=== PATIENT | male | born 1955 | race Caucasian/White ===

== ENCOUNTER → 2018-04-24 | Outpatient (CLI) | payer OTHER | END | disposition home or self-care (01) | LOC: RX STUDY 04-18 09:15 | DX: R13.19 Other dysphagia (principal) ==

== ENCOUNTER 2018-09-02 09:14 | Outpatient (CLI) | payer OTHER | END 2018-09-02 09:19 | disposition home or self-care (01) | LOC: NUCLEAR 09:14 | DX: I67.89 Other cerebrovascular disease (principal); G20 Parkinson's disease ==

== ENCOUNTER 2018-09-02 10:07 | Outpatient (CLI) | payer OTHER | END 2018-09-02 17:00 | disposition home or self-care (01) | LOC: MRI 10:07 | DX: G20 Parkinson's disease (principal) | CPT/HCPCS: 70553 ==

== ENCOUNTER 2025-03-04 14:22 | Emergency (ER) | payer OTHER ==
[~2025-03-04] VITALS: Ht 170.2 cm; Wt 47.6 kg
[2025-03-04] MEDS ORDERED: DEPAKOTE ER500 MG (14:49)
[2025-03-04] MEDS ORDERED: CARBIDOPA-LEVO1 EAC1 (14:49)
[2025-03-04] MEDS ORDERED: MYSOLINE50 MG (14:50)
[2025-03-04] MEDS ORDERED: MORPHINE SULFATE 4 MG/ML VIAL IV STA (15:13)
[2025-03-04 16:32] LABS: ALBUMIN 2.9 gm/dL (3.4-5.0); BILIRUBIN TOTAL 0.12 mg/dL (0.3-1.2); CALCIUM 8.7 mg/dL (8.5-10.1); CREATININE SERUM 0.38 mg/dL (0.70-1.30); GFR 227.65; GLOBULINA 3.3 G/DL (2.4-3.5); POTASSIUM 4.27 mEq/L (3.5-5.1); TOTAL PROTEIN 6.2 gm/dL (6.4-8.2)
[2025-03-04 16:41] LABS: INR 0.94; PARTIAL THROMBOPLASTIN TIME 25.4 SECONDS (22.0-34.0); PROTHROMBIN TIME 10.3 SECONDS (9.0-11.5)
[2025-03-04 17:29] LABS: PH,URINE 6.5 (5.0-8.0); URINE APPEARANCE Clear; URINE BILIRRUBIN Negative (NEGATIVE); URINE BLOOD Negative; URINE COLOR Yellow; URINE GLUCOSE Negative (NEGATIVE); URINE KETONE Negative (NEGATIVE); URINE LEUKOCYTE Negative; URINE NITRATE Negative; URINE PROTEIN Negative (NEGATIVE); URINE UROBILINOGEN 0.2 E.U./dl
[2025-03-04 17:33] LABS: URINE BACTERIA 78.3 uL (0.0-1933); URINE EPITHELIAL CELLS 1.4 uL (0.0-38.8); URINE WBC 2.9 uL (0.0-23.2)
[2025-03-04 17:42] LABS: URINE CAST 0.14 uL (0.0-1.40)
[2025-03-04 17:45] LABS: HEMATOCRIT 37.4 % (39.0-48.0); HEMOGLOBIN 12.2 g/dL (13-16.00); MEAN CELL VOLUME 92.6 fL (80.0-100.00); MEAN CORPUSCULAR HEMOGLOBIN 30.2 pg (27.00-32.0); MEAN CORPUSCULAR HGB CONC 32.7 g/dl (32.0-36.0); PLATELET COUNT 385 K/uL (150-450); RED BLOOD COUNT 4.04 M/uL (4.00-6.00); RED CELL DISTRIBUTION WIDTH 14.7 % (11.5-14.5)
== END 2025-03-04 20:51 | disposition home or self-care (01) ==
LOC: ER 14:22
PROVIDERS: Emergency Medicine; General Practice
DX: M54.50 Low back pain, unspecified (principal); J44.9 Chronic obstructive pulmonary disease, unspecified; K21.9 Gastro-esophageal reflux disease without esophagitis; G20.A1 Parkinson's disease without dyskinesia, without mention of fluctuations; M81.8 Other osteoporosis without current pathological fracture; Z90.3 Acquired absence of stomach [part of]